=== PATIENT | male | born 1980 | race Caucasian/White ===

== ENCOUNTER 2017-09-15 10:45 | Emergency (ER) | payer BC ==
[2017-09-15] MEDS ORDERED: LIDOCAINE PATCH 5% TOP STA (12:36)
[2017-09-15] MEDS ORDERED: CYCLOBENZAPRINE 10 MG TABLET PO STA (12:36)
[2017-09-15] MEDS ORDERED: KETOROLAC 60 MG/2 ML VIAL IM STA (12:36)
--- NOTE | 2017-09-15 13:11 | ED Physician Documentation ---
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 hx back problems aggrevated rossing his son up and down severe pain across low back rad to right inguinal region no fever no abd pain no incont or hematuria hurts to move and bend worse after he got stiff sitting in a cockpit no fever no IV meds drugs no recent surgery or dental work Review of Systems Constitutional: denies: Fever Cardiac: denies: Chest pain / pressure Respiratory: denies: Dyspnea GI: denies: Abdominal Pain, Nausea, Vomiting : denies: Incontinent, Hematuria Musculoskeletal: reports: Back pain Neurologic: denies: Focal weakness, Numbness Endocrine: denies: Easy bruising / bleeding Immunocompromised: denies: Immunocompromised PD PAST MEDICAL HISTORY - Past Medical History Past Medical History: No Other Past Medical History: Chronic back pain - Past Surgical History Past Surgical History: No - Present Medications Home Medications: Ambulatory Orders Medication Instructions Recorded Confirmed Carisoprodol [Soma] 350 mg PO Q8H PRN #15 tablet 09/15/17 Ibuprofen [Motrin] 800 mg PO Q8H PRN #30 tablet 09/15/17 Lidocaine Patch 5% [Lidoderm Patch] 1 each TOP DAILY PRN #10 patch 09/15/17 - Allergies Allergies/Adverse Reactions: Allergies Allergy/AdvReac Type Severity Reaction Status Date / Time No Known Drug Allergies Allergy Verified 09/15/17 11:03 - Social History Does the pt smoke?: No Smoking Status: Never smoker Does the pt drink ETOH?: Yes Does the pt have substance abuse?: No - Immunizations Immunizations are current?: Yes - POLST Patient has POLST: No PD ED PE NORMAL - Vitals Vital signs reviewed: Yes - Neck Neck: Supple, no meningeal sign - Cardiac Cardiac: RRR - Respiratory Respiratory: No respiratory distress, Clear bilaterally - Abdomen Abdomen: Soft, Non tender, Other (no pulsatile mass) - Male Male : Other (testicle NT, nl lie, no erythema or swelling, no palp hernia with cough) - Back Back: No spinal TTP (no focal redness or swelling, muscular TTP and limited ROM aiden flexion and ext) - Derm Derm: Normal color - Neuro Neuro: Other (hip flexion knee ext great toe ext foot dorsi plantar ext 5/5, neg SLR charlee, no clounus, patellar DTR 3/4, denies saddle enesthasia, sens to legs intact) Results - Vitals Vitals: Vital Signs - 24 hr 09/15/17 11:03 Temperature 36.4 C L Heart Rate 63 Respiratory 18 Rate Blood Pressure 148/78 H O2 Saturation 98 Oxygen O2 Source Room air PD MEDICAL DECISION MAKING - ED course ED course: muscular back pain in pt with hx back pain no red flags will tx symptomatically and dc Departure - Departure Disposition: Home, Self Care Clinical Impression: Back pain Qualifiers: Back pain location: low back pain Chronicity: acute Back pain laterality: bilateral Sciatica presence: without sciatica Qualified Code(s): M54.5 - Low back pain Condition: Good Instructions: ED Low Back Pain Injury Prescriptions: Carisoprodol [Soma] 350 mg PO Q8H PRN #15 tablet PRN Reason: muscle spasm Ibuprofen [Motrin] 800 mg PO Q8H PRN #30 tablet PRN Reason: Pain Lidocaine Patch 5% [Lidoderm Patch] 1 each TOP DAILY PRN #10 patch PRN Reason: Pain Forms: Activity restrictions
[2017-09-15 13:17] VITALS: BP 133/76
== END 2017-09-15 13:24 | disposition home or self-care (01) ==
LOC: ED 10:45
DX: M54.5 Low back pain (principal)
CPT/HCPCS: 96372; 99283; A9270

== ENCOUNTER 2020-05-31 13:47 | Outpatient (CLI) | payer BC ==
--- NOTE | 2020-05-31 14:25 | XRAY Report ---
PROCEDURE: Finger(s) LT INDICATIONS: THUMB PAIN LEFT TECHNIQUE: 3 views of the left finger(s) acquired. COMPARISON: None. FINDINGS: Bones: No fractures or dislocations. No suspicious bony lesions. Soft tissues: No suspicious soft tissue calcifications. IMPRESSION: No definite fracture however follow-up radiographs in 10 days could be performed if the patient's sym ptoms do not improve to exclude occult fracture/assess for healing sclerosis. Reviewed by: Minor Angulo MD on 05/31/2020 2:24 PM PDT Approved by: Minor Angulo MD on 05/31/2020 2:24 PM PDT Station ID: [id number]
== END 2020-05-31 13:48 | disposition home or self-care (01) ==
LOC: DI.S 13:47
PROVIDERS: ATTEND Physician Assistant
DX: M79.645 Pain in left finger(s) (principal)
CPT/HCPCS: 73140